=== PATIENT | female | born 1980 | race Two or more races ===

== ENCOUNTER 2024-08-29 12:19 | Outpatient (CLI) | payer OTHER | END 2024-08-29 12:24 | disposition home or self-care (01) | LOC: SONOGRAMA 12:19 | PROVIDERS: ATTEND Pathology Anatomic Pathology | DX: R59.0 Localized enlarged lymph nodes (principal); E04.1 Nontoxic single thyroid nodule; R22.1 Localized swelling, mass and lump, neck ==

== ENCOUNTER 2024-11-14 14:00 | Outpatient (CLI) | payer OTHER | END 2024-11-14 14:02 | disposition home or self-care (01) | LOC: SONOGRAMA 14:00 | PROVIDERS: ATTEND Pathology Anatomic Pathology | DX: R59.0 Localized enlarged lymph nodes (principal); R59.9 Enlarged lymph nodes, unspecified ==